=== PATIENT | male | born 1940 | race Caucasian/White ===

== ENCOUNTER 2021-06-21 17:26 | Inpatient (IN) | payer OTHER, MEDICARE, SELFPAY ==
[~2021-06-21] VITALS: Ht 170.2 cm; Wt 66.7 kg
[~2021-06-21 17:26] MED LIST: DABI150C PO; DOXA2TAB2 PO; FERR256T PO; FLUT1DIS3 IH; MONT-40 PO; OMEP40CA20 PO; VIT1TABL67 PO
[2021-06-21 18:46] VITALS: BP_SYST 122
--- NOTE | 2021-06-21 18:46 | NUR ---
Pt. came in with , had routine lab work done this am and received a call from PCP that his sodium level was low at 120 and to go to hospital to have labs rechecked and be evaluated
[2021-06-21 19:19] LABS: BASOPHILS # (AUTO) 0.1 K/uL (0.0-0.2); BASOPHILS % (AUTO) 2.4 % (0.0-2.0); EOSINOPHILS # (AUTO) 0.5 K/uL (0.0-0.4); HEMATOCRIT 38.3 % (36-54); HEMOGLOBIN 12.8 g/dL (14.0-18.0); LYMPHOCYTES # (AUTO) 1.8 K/uL (1.0-5.5); LYMPHOCYTES % (AUTO) 39.3 % (20.5-51.5); MEAN CORPUSCULAR HEMOGLOBIN 32 pg (27-31); MEAN CORPUSCULAR HGB CONC 34 % (32-36); MEAN CORPUSCULAR VOLUME 94 fL (79.0-98.0); MONOCYTES # (AUTO) 0.3 K/uL (0.0-1.0); MONOCYTES % (AUTO) 7.3 % (1.7-9.3); NEUTROPHILS # (AUTO) 1.8 K/uL (1.8-7.7); PLATELET COUNT (AUTO) 166 K/uL (130-430); RED BLOOD CELL COUNT(AUTO) 4.06 MIL/uL (4.2-6.2); RED CELL DISTRIBUTION WIDTH 15.5 % (9.0-15.0); WHITE BLOOD COUNT (AUTO) 4.6 K/uL (4.8-10.8)
[2021-06-21 19:35] LABS: ANION GAP 7 (5-15); CALCIUM 8.2 mg/dL (8.4-11.0); CHLORIDE 90 mmol/L (98-107); CREATININE 0.88 mg/dL (0.55-1.30); GLUCOSE 75 mg/dL (70-99); POTASSIUM 4.2 mmol/L (3.5-5.1); UREA NITROGEN, BLOOD 8 mg/dL (8-21)
[2021-06-21 19:37] LABS: SODIUM SERUM 119 mmol/L (136-145)
[2021-06-21 19:45] LABS: ALANINE AMINOTRANSFERASE 18 U/L (12-78); ASPARTATE AMINOTRANSFERASE 33 U/L (10-37); PHOSPHORUS 3.6 mg/dL (2.7-4.5); TOTAL BILIRUBIN 0.3 mg/dL (0.0-1.0)
[2021-06-21 19:54] LABS: ALBUMIN 2.7 g/dL (3.4-4.8)
[2021-06-21 20:00] LABS: LIPASE 17 U/L (73-393)
--- NOTE | 2021-06-21 21:43 | NUR ---
Swabbed patient for Covid19 testing, specimen sent to lab
--- NOTE | 2021-06-21 22:00 | NUR ---
Patient resting quietly in the waiting room. No acute distress noted. Vital signs within normal range.
--- NOTE | 2021-06-21 23:28 | NUR ---
ER in triage examining patient.
[2021-06-22] MEDS: NACL 0.9% 1,000 ML IV SCH ×3 (01:30→15:31)
--- NOTE | 2021-06-22 01:30 | NUR ---
Patient to ER bed hw2 to gown for evaluation. Side rails up. Report given to self. introduced self to patient, positioned for comfort and safety w/ bed to low position sr up, continue to monitor. Addendum: 06/22/21 at 0300 by [email or web address] # 20 gauge angiocath placed to left forearm. Use of asceptic technique. Opsite placed over site. Blood return noted. Flushed with 10 cc of normal saline. No evidence of infiltration noted. Patient tolerated well.
--- NOTE | 2021-06-22 07:29 | NUR ---
PT IN HALLWAY, IN NAD RESP EVEN AND UNLABORED, REQUESTING TO GO TO BATHROOM, STEADY GAIT WITH CANE NOTED. DENIES ANY DIZZINESS OR SOB AT THIS TIME.
--- NOTE | 2021-06-22 08:07 | NUR ---
SPOKE TO DR ROYAL TO CLARIFY IV FLUID ORDER. STATES TO HAVE NS @ 100/ML CONTINUOUSLY.
--- NOTE | 2021-06-22 08:22 | NUR ---
REGULAR DIET GIVEN, PROPPED TO SELF FEED.
[2021-06-22] MEDS ORDERED: ACETAMINOPHEN 325 MG TABLET PO PRN ×2 (11:30)
[2021-06-22] MEDS ORDERED: LORazepam 2 MG/ML VIAL IVP PRN (11:30)
[2021-06-22] MEDS ORDERED: ONDANSETRON HCL 4 MG/2 ML VIAL IVP PRN (11:30)
[2021-06-22 11:47] LABS: BASOPHILS # (AUTO) 0.1 K/uL (0.0-0.2); BASOPHILS % (AUTO) 1.3 % (0.0-2.0); EOSINOPHILS # (AUTO) 0.5 K/uL (0.0-0.4); EOSINOPHILS % (AUTO) 10.9 % (0.0-4.0); HEMATOCRIT 36.4 % (36-54); HEMOGLOBIN 12.2 g/dL (14.0-18.0); LYMPHOCYTES # (AUTO) 1.6 K/uL (1.0-5.5); LYMPHOCYTES % (AUTO) 32.2 % (20.5-51.5); MEAN CORPUSCULAR HEMOGLOBIN 31 pg (27-31); MEAN CORPUSCULAR HGB CONC 34 % (32-36); MEAN CORPUSCULAR VOLUME 94 fL (79.0-98.0); MONOCYTES # (AUTO) 0.6 K/uL (0.0-1.0); MONOCYTES % (AUTO) 11.1 % (1.7-9.3); NEUTROPHILS # (AUTO) 2.2 K/uL (1.8-7.7); NEUTROPHILS % (AUTO) 44.5 % (40.0-70.0); PLATELET COUNT (AUTO) 148 K/uL (130-430); RED BLOOD CELL COUNT(AUTO) 3.89 MIL/uL (4.2-6.2); RED CELL DISTRIBUTION WIDTH 15.5 % (9.0-15.0)
[2021-06-22 11:51] LABS: ANION GAP 6 (5-15); CALCIUM 7.7 mg/dL (8.4-11.0); CHLORIDE 91 mmol/L (98-107); CREATININE 0.79 mg/dL (0.55-1.30); GLUCOSE 93 mg/dL (70-99); POTASSIUM 4.3 mmol/L (3.5-5.1); SODIUM SERUM 122 mmol/L (136-145); UREA NITROGEN, BLOOD 8 mg/dL (8-21)
[2021-06-22] MEDS ORDERED: DABIGATRAN ETEXILATE MESYLATE 75 MG CAPSULE PO ONE (12:00)
[2021-06-22] MEDS ORDERED: FERROUS GLUCONATE 324 MG TABLET PO ONE (12:00)
[2021-06-22] MEDS ORDERED: PANTOPRAZOLE SODIUM 40 MG TAB PO ONE (12:00)
[2021-06-22] MEDS: ALBUTEROL SULFATE 0.083% 2.5 MG/3 ML VIAL.NEB INH SCH ×2 (13:00→21:12)
--- NOTE | 2021-06-22 14:01 | NUR ---
Fed Reg. Diet meal.
--- NOTE | 2021-06-22 19:30 | NUR ---
report received from TIERRA Parsons
[2021-06-22] MEDS ORDERED: DOXAZOSIN MESYLATE 2 MG TABLET ONE (20:47)
[2021-06-22] MEDS ORDERED: MONTELUKAST 10 MG TABLET ONE (20:47)
[2021-06-22] MEDS ORDERED: FLUTICASONE 250 mCg/SALMETEROL 50 mCg DISKUS W.DEV IH SCH (21:00)
[2021-06-22] MEDS: MONTELUKAST 10 MG TABLET PO SCH (21:01)
[2021-06-22] MEDS: PANTOPRAZOLE SODIUM 40 MG TAB PO SCH (21:02)
[2021-06-22] MEDS: DABIGATRAN ETEXILATE MESYLATE 75 MG CAPSULE PO SCH (21:02)
[2021-06-22] MEDS: DOXAZOSIN MESYLATE 2 MG TABLET PO SCH (21:08)
--- NOTE | 2021-06-22 21:09 | NUR ---
PATIENT RESTING COMFORTABLY IN BED. VOICED NO COMPLAINTS.
[2021-06-22] MEDS: BUDESONIDE 0.5 MG/2 ML AMPUL.NEB INH SCH (21:12)
--- NOTE | 2021-06-22 23:58 | NUR ---
Patient resting quietly in bed. Chest rise and fall noted. No acute distress noted.
--- NOTE | 2021-06-23 00:18 | NUR ---
Patient out of bed to restroom. Patient ambulated with steady gait.
--- NOTE | 2021-06-23 00:25 | NUR ---
Patient placed back in bed. No voiced complaints.
--- NOTE | 2021-06-23 03:42 | NUR ---
REPORT GIVEN TO TIERRA VIVAR FOR CONTINUATION OF CARE. PATIENT SLEEPING IN [facility]. NO ACUTE DISTRESS NOTED AT THIS TIME.
--- NOTE | 2021-06-23 04:17 | NUR ---
Assumed total care of patient. Patient ambulated to restroom with steady gait with use of cane and returned to bed. Patient is awake, alert, and oriented x4, denies any medical complaints. Patient breathing even and unlabored, no signs of acute distress noted. Patient receiving IV fluids of NS at 100ml/hr. IV sites flushed with 10cc normal saline, no signs of infiltration noted. Will continue to monitor patient.
--- NOTE | 2021-06-23 05:36 | NUR ---
Lab at bedside drawing morning blood labs
[2021-06-23] MEDS: NACL 0.9% 1,000 ML IV SCH ×2 (06:03→16:00)
--- NOTE | 2021-06-23 06:03 | NUR ---
Patient ambulated to restroom utilizing cane with steady gait. Patient returned to [facility]. New 1L bag of NS started at 100ml/hr. IV site patent, no signs of infiltration noted. Will continue to monitor.
[2021-06-23 06:10] LABS: BASOPHILS # (AUTO) 0.1 K/uL (0.0-0.2); BASOPHILS % (AUTO) 1.2 % (0.0-2.0); EOSINOPHILS # (AUTO) 0.6 K/uL (0.0-0.4); EOSINOPHILS % (AUTO) 13.1 % (0.0-4.0); HEMOGLOBIN 12.3 g/dL (14.0-18.0); LYMPHOCYTES # (AUTO) 1.6 K/uL (1.0-5.5); MEAN CORPUSCULAR HEMOGLOBIN 31 pg (27-31); MEAN CORPUSCULAR HGB CONC 33 % (32-36); MEAN CORPUSCULAR VOLUME 94 fL (79.0-98.0); MONOCYTES # (AUTO) 0.6 K/uL (0.0-1.0); MONOCYTES % (AUTO) 13.2 % (1.7-9.3); NEUTROPHILS # (AUTO) 1.5 K/uL (1.8-7.7); NEUTROPHILS % (AUTO) 34.5 % (40.0-70.0); PLATELET COUNT (AUTO) 141 K/uL (130-430); RED BLOOD CELL COUNT(AUTO) 3.92 MIL/uL (4.2-6.2); RED CELL DISTRIBUTION WIDTH 15.3 % (9.0-15.0); WHITE BLOOD COUNT (AUTO) 4.3 K/uL (4.8-10.8)
[2021-06-23 06:31] LABS: ANION GAP 6 (5-15); CALCIUM 7.9 mg/dL (8.4-11.0); CHLORIDE 92 mmol/L (98-107); CREATININE 0.66 mg/dL (0.55-1.30); GLUCOSE 87 mg/dL (70-99); POTASSIUM 4.1 mmol/L (3.5-5.1); SODIUM SERUM 123 mmol/L (136-145); UREA NITROGEN, BLOOD 6 mg/dL (8-21)
[2021-06-23] MEDS: BUDESONIDE 0.5 MG/2 ML AMPUL.NEB INH SCH ×2 (07:00→19:00)
[2021-06-23] MEDS: ALBUTEROL SULFATE 0.083% 2.5 MG/3 ML VIAL.NEB INH SCH ×3 (07:00→19:00)
--- NOTE | 2021-06-23 07:03 | NUR ---
Report given to TIERRA Silverman for continuation of care. Patient resting quietly in gurney, IV fluids infusing at ordered rate. No signs of infiltration noted.
--- NOTE | 2021-06-23 07:30 | NUR ---
RECEIEVED PT ON [place], IN NAD. PT AAOX4, RESP EVEN AND UNLABORED, ON RA @99%. DENIES ANY SOB OR CP. SKIN W/D/I. IV FLUIDS INFUSING WELL VIA PUMP, WILL CONT TO MONITOR. VSS.
[2021-06-23] MEDS: PANTOPRAZOLE SODIUM 40 MG TAB PO SCH ×2 (09:00→22:10)
[2021-06-23] MEDS ORDERED: NON-FORMULARY MEDICATION (Vit D3 & K/Berberine Hcl/Hops (Ostera Tablet) 1 EACH) PO SCH (09:00)
[2021-06-23] MEDS: FERROUS GLUCONATE 324 MG TABLET PO SCH (09:00)
[2021-06-23] MEDS: DABIGATRAN ETEXILATE MESYLATE 75 MG CAPSULE PO SCH ×2 (09:00→22:13)
[2021-06-23] MEDS ORDERED: SODIUM CHLORIDE 3% *HI-ALERT* 500 ML IV ONE (09:15)
--- NOTE | 2021-06-23 10:02 | NUR ---
SPOKE TO DR SOLIS-FANCY STITCHER, STATES OKAY TO HAVE 3% NACL AT 30CC/HR FOR NOW WITH CHEM 7 IN 4 HRS. STATES HE WILL COME TO SEE PT LATER TODAY.
--- NOTE | 2021-06-23 12:09 | NUR ---
PT EATING LUNCH, TOLERATING WELL. VSS. DENIES ANY PAIN AT THIS TIME. IV FLUIDS INFUSING WELL.
--- NOTE | 2021-06-23 15:29 | NUR ---
[facility]
--- NOTE | 2021-06-23 15:38 | NUR ---
NO ACUTE CHNAGES IN CONDITION, PT AMBULATING TO BATHROOM IN STEADY GAIT. VSS
[2021-06-23 16:10] LABS: ANION GAP 5 (5-15); CHLORIDE 92 mmol/L (98-107); CREATININE 0.73 mg/dL (0.55-1.30); GLUCOSE 114 mg/dL (70-99); POTASSIUM 3.6 mmol/L (3.5-5.1); SODIUM SERUM 123 mmol/L (136-145); UREA NITROGEN, BLOOD 5 mg/dL (8-21)
[2021-06-23] MEDS: MONTELUKAST 10 MG TABLET PO SCH (18:00)
--- NOTE | 2021-06-23 19:45 | NUR ---
PATIENT LYING IN BED RESTING COMFORTABLY, NO C/O PAIN OR S/S OF DISTRESS, CHEST RISE AND FALL SYMMETRICAL. PATIENT'S BED IN LOW AND LOCKED POSITION, BED RAILS UP.
[2021-06-23] MEDS ORDERED: DOXAZOSIN MESYLATE 2 MG TABLET ONE (22:13)
[2021-06-23] MEDS: DOXAZOSIN MESYLATE 2 MG TABLET PO SCH (22:19)
[2021-06-24] MEDS: ALBUTEROL SULFATE 0.083% 2.5 MG/3 ML VIAL.NEB INH SCH ×3 (01:00→12:19)
[2021-06-24] MEDS: NACL 0.9% 1,000 ML IV SCH ×3 (05:36→22:03)
--- NOTE | 2021-06-24 06:39 | NUR ---
DURING SHIFT, PATIENT WENT TO RESTROOM TO URINATE, THREE TIMES.
[2021-06-24] MEDS: BUDESONIDE 0.5 MG/2 ML AMPUL.NEB INH SCH (07:00)
--- NOTE | 2021-06-24 07:44 | NUR ---
Lab at bedside for AM blood draw.
--- NOTE | 2021-06-24 08:00 | NUR ---
PATIENT LYING IN BED RESTING COMFORTABLY, NO C/O PAIN OR S/S OF DISTRESS, CHEST RISE AND FALL SYMMETRICAL. PATIENT'S BED IN LOW AND LOCKED POSITION, BED RAILS UP. REPORT GIVEN TO AM SHIFT NURSE, SHAHRAM MAYORGA. SHAHRAM MAYORGA VERBALIZED UNDERSTANDING OF REPORT. NO FURTHER QUESTIONS FROM AM SHIFT RN.
[2021-06-24 08:49] LABS: BASOPHILS # (AUTO) 0.1 K/uL (0.0-0.2); BASOPHILS % (AUTO) 1.2 % (0.0-2.0); EOSINOPHILS # (AUTO) 0.6 K/uL (0.0-0.4); EOSINOPHILS % (AUTO) 13.7 % (0.0-4.0); HEMATOCRIT 38.6 % (36-54); HEMOGLOBIN 12.9 g/dL (14.0-18.0); LYMPHOCYTES # (AUTO) 1.6 K/uL (1.0-5.5); LYMPHOCYTES % (AUTO) 36.4 % (20.5-51.5); MEAN CORPUSCULAR HEMOGLOBIN 32 pg (27-31); MEAN CORPUSCULAR HGB CONC 34 % (32-36); MEAN CORPUSCULAR VOLUME 94 fL (79.0-98.0); MONOCYTES # (AUTO) 0.6 K/uL (0.0-1.0); NEUTROPHILS # (AUTO) 1.6 K/uL (1.8-7.7); NEUTROPHILS % (AUTO) 35.7 % (40.0-70.0); PLATELET COUNT (AUTO) 145 K/uL (130-430); WHITE BLOOD COUNT (AUTO) 4.5 K/uL (4.8-10.8)
[2021-06-24] MEDS: DABIGATRAN ETEXILATE MESYLATE 75 MG CAPSULE PO SCH ×2 (09:00→21:56)
[2021-06-24] MEDS: PANTOPRAZOLE SODIUM 40 MG TAB PO SCH ×2 (11:24→21:56)
[2021-06-24] MEDS: FERROUS GLUCONATE 324 MG TABLET PO SCH (11:24)
[2021-06-24 11:44] LABS: ANION GAP 11 (5-15); CALCIUM 8.4 mg/dL (8.4-11.0); CHLORIDE 94 mmol/L (98-107); CREATININE 0.73 mg/dL (0.55-1.30); GLUCOSE 61 mg/dL (70-99); POTASSIUM 3.7 mmol/L (3.5-5.1); SODIUM SERUM 126 mmol/L (136-145); UREA NITROGEN, BLOOD 4 mg/dL (8-21)
[2021-06-24] MEDS ORDERED: AMYL1CAP58 PO (12:40)
[2021-06-24] MEDS ORDERED: APIX5TAB4 PO (12:42)
--- NOTE | 2021-06-24 13:00 | NUR ---
Dr. Cook at bedside to assess.
[2021-06-24] MEDS ORDERED: SODIUM CHLORIDE 3% *HI-ALERT* 500 ML IV ONE (13:15)
--- NOTE | 2021-06-24 13:20 | NUR ---
Dr. Wilson at bedside to assess.
--- NOTE | 2021-06-24 14:00 | NUR ---
# 18 gauge angiocath placed to right wrist. Use of asceptic technique. Opsite placed over site. Flushed with 10 cc of normal saline. No evidence of infiltration noted. Patient tolerated well.
--- NOTE | 2021-06-24 14:00 | NUR ---
IV infiltrated in left wrist. Warm compress and bandage applied.
--- NOTE | 2021-06-24 15:20 | NUR ---
Pt continues to tolerate hypertonic saline infusion.
--- NOTE | 2021-06-24 17:05 | NUR ---
Pt still awaiting ICU bed assignment. Pt is resting quietly in no distress. Pt is sitting up in bed watching television.
--- NOTE | 2021-06-24 18:00 | NUR ---
Pt given dinner tray. Pt sitting up in bed watching television in no distress.
--- NOTE | 2021-06-24 18:10 | NUR ---
Lab at bedside for blood draw.
[2021-06-24] MEDS: MONTELUKAST 10 MG TABLET PO SCH (18:24)
[2021-06-24 18:35] LABS: ALANINE AMINOTRANSFERASE 19 U/L (12-78); ALBUMIN 2.4 g/dL (3.4-4.8); ANION GAP 11 (5-15); ASPARTATE AMINOTRANSFERASE 35 U/L (10-37); CALCIUM 7.7 mg/dL (8.4-11.0); CHLORIDE 95 mmol/L (98-107); CREATININE 0.74 mg/dL (0.55-1.30); GLUCOSE 81 mg/dL (70-99); POTASSIUM 3.7 mmol/L (3.5-5.1); SODIUM SERUM 127 mmol/L (136-145); TOTAL BILIRUBIN 0.8 mg/dL (0.0-1.0); UREA NITROGEN, BLOOD 4 mg/dL (8-21)
--- NOTE | 2021-06-24 19:00 | NUR ---
Report given to TIERRA Hoang who will assume care.
--- NOTE | 2021-06-24 20:18 | NUR ---
Pt resting in comfort on Hospital bed, took away half finished food tray.
[2021-06-24] MEDS: DOXAZOSIN MESYLATE 2 MG TABLET PO SCH (21:52)
--- NOTE | 2021-06-24 22:00 | NUR ---
Pt stated feeling a little better, with VSS
--- NOTE | 2021-06-25 | NUR ---
Provided bed change and emptied urinal x 2 with 200 + ml of clear yellow
--- NOTE | 2021-06-25 02:00 | NUR ---
Pt verbalized getting " really good sleep " with VSS, and 3% NS well tolerated
--- NOTE | 2021-06-25 03:55 | NUR ---
Pt states he will ask his family to bring danielito for him
--- NOTE | 2021-06-25 04:25 | NUR ---
Pt used BSC effectively with # 1 and 2, well tolerated
[2021-06-25 05:00] LABS: BASOPHILS # (AUTO) 0.1 K/uL (0.0-0.2); BASOPHILS % (AUTO) 1.6 % (0.0-2.0); EOSINOPHILS # (AUTO) 0.5 K/uL (0.0-0.4); EOSINOPHILS % (AUTO) 12.6 % (0.0-4.0); HEMATOCRIT 35.5 % (36-54); HEMOGLOBIN 11.9 g/dL (14.0-18.0); LYMPHOCYTES # (AUTO) 1.5 K/uL (1.0-5.5); LYMPHOCYTES % (AUTO) 34.6 % (20.5-51.5); MEAN CORPUSCULAR HEMOGLOBIN 32 pg (27-31); MEAN CORPUSCULAR HGB CONC 34 % (32-36); MEAN CORPUSCULAR VOLUME 94 fL (79.0-98.0); MONOCYTES # (AUTO) 0.6 K/uL (0.0-1.0); MONOCYTES % (AUTO) 13.3 % (1.7-9.3); NEUTROPHILS # (AUTO) 1.6 K/uL (1.8-7.7); NEUTROPHILS % (AUTO) 37.9 % (40.0-70.0); PLATELET COUNT (AUTO) 141 K/uL (130-430); RED BLOOD CELL COUNT(AUTO) 3.78 MIL/uL (4.2-6.2); RED CELL DISTRIBUTION WIDTH 15.2 % (9.0-15.0); WHITE BLOOD COUNT (AUTO) 4.3 K/uL (4.8-10.8)
[2021-06-25 05:40] LABS: ALANINE AMINOTRANSFERASE 18 U/L (12-78); ALBUMIN 2.3 g/dL (3.4-4.8); ANION GAP 6 (5-15); ASPARTATE AMINOTRANSFERASE 33 U/L (10-37); CALCIUM 7.8 mg/dL (8.4-11.0); CHLORIDE 100 mmol/L (98-107); CREATININE 0.69 mg/dL (0.55-1.30); GLUCOSE 85 mg/dL (70-99); POTASSIUM 3.3 mmol/L (3.5-5.1); SODIUM SERUM 130 mmol/L (136-145); TOTAL BILIRUBIN 0.7 mg/dL (0.0-1.0); UREA NITROGEN, BLOOD 3 mg/dL (8-21)
[2021-06-25] MEDS: BUDESONIDE 0.5 MG/2 ML AMPUL.NEB INH SCH (07:00)
[2021-06-25] MEDS: ALBUTEROL SULFATE 0.083% 2.5 MG/3 ML VIAL.NEB INH SCH (07:00)
--- NOTE | 2021-06-25 08:12 | NUR ---
PT VERBALIZED HE'S READY TO GO HOME, DR ROYAL PAGED, OK FOR PT TO BE DISCHARGED. ORDERS FOR PT TO F/U WITHIN 1 WEEK FOR REPEAT LABS. PT VERBAIZED UNDERSTANDING.
--- NOTE | 2021-06-25 09:30 | NUR ---
Patient given verbal discharge instructions and verbalizes understanding. discussed with patient the results and treatment provided. Patient in stable condition. ID arm band removed. IV catheter removed intact and dressing applied, no active bleeding. NO Rx given. Patient educated on pain management and to follow up with PMD. Pain Scale 0. Opportunity for questions provided and answered. Medication side effect fact sheet provided.
[2021-06-25 18:45] VITALS: BP_SYST 162
== END 2021-06-25 09:30 | disposition home or self-care (01) | DRG 640 ==
LOC: SED 17:26 → SMU 23:48 → UNDOADMIN 23:48 → SIC 06-23 09:12
PROVIDERS: ADMIT Preventive Medicine Preventive Medicine/Occupational Environmental Medicine; ATTEND Preventive Medicine Preventive Medicine/Occupational Environmental Medicine
DX: E87.1 Hypo-osmolality and hyponatremia (principal); E43 Unspecified severe protein-calorie malnutrition; C25.9 Malignant neoplasm of pancreas, unspecified; E83.52 Hypercalcemia; J44.9 Chronic obstructive pulmonary disease, unspecified; Z20.822 Contact with and (suspected) exposure to COVID-19; D64.9 Anemia, unspecified; D72.819 Decreased white blood cell count, unspecified; E88.09 Other disorders of plasma-protein metabolism, not elsewhere classified; E87.0 Hyperosmolality and hypernatremia; Z85.07 Personal history of malignant neoplasm of pancreas; Z68.23 Body mass index [BMI] 23.0-23.9, adult
CPT/HCPCS: 36415; 80048; 80053; 83690; 83735; 83930; 84100; 85025; 94640; 99285; J2060; J3490; J7613; J7626